=== PATIENT | female | born 2000 | race Caucasian/White ===

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

== ENCOUNTER 2020-02-09 02:13 | Emergency (ER) | payer OTHER ==
[2020-02-09 02:35] LABS: BILIRUBIN,URINE NEGATIVE (NEGATIVE); GLUCOSE, URINE (UA) NEGATIVE (NEGATIVE); KETONES,URINE (UA) NEGATIVE (NEGATIVE); LEUKOCYTE ESTERASE, URINE SMALL (NEGATIVE); NITRITE,URINE NEGATIVE (NEGATIVE); OCCULT BLOOD,URINE LARGE (NEGATIVE); PROTEIN,URINE 100 mg/dL (NEGATIVE); UROBILINOGEN,URINE 0.2 (NORMAL) E.U./dL (NORMAL)
[2020-02-09 02:36] LABS: HCG UR QUAL NEGATIVE
[2020-02-09 02:37] LABS: CLARITY,URINE SL. CLOUDY (CLEAR)
[2020-02-09 02:43] LABS: BACTERIA,URINE Moderate /HPF (None Seen); RBC,URINE TNTC /HPF (0-5); SQUAMOUS EPITHELIAL CELL,UR RARE Squamous (<= Few)
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
[2020-02-09 03:21] LABS: BASOPHILS # (AUTO) 0.1 10^3/uL (0.0-0.1); BASOPHILS % (AUTO) 0.6 %; EOSINOPHILS % (AUTO) 0.1 %; HGB - HEMOGLOBIN 13.9 g/dL (12.0-16.0); LYMPHOCYTES # (AUTO) 1.8 10^3/uL (1.5-3.5); LYMPHOCYTES % (AUTO) 16.5 %; MEAN CORPUSCULAR HEMOGLOBIN 31.7 pg (27.0-31.0); MEAN CORPUSCULAR HGB CONC 33.7 g/dL (32.0-36.0); MEAN CORPUSCULAR VOLUME 93.8 fL (81.0-99.0); MEAN PLATELET VOLUME 10.8 fL (7.9-10.8); MONOCYTES # (AUTO) 0.7 10^3/uL (0.0-1.0); MONOCYTES % (AUTO) 6.8 %; NEUTROPHILS # (AUTO) 8.2 10^3/uL (1.5-6.6); NEUTROPHILS % (AUTO) 75.5 %; PLT - PLATELET COUNT 248 10^3/uL (130-450); RED BLOOD COUNT 4.39 10^6/uL (4.20-5.40); RED CELL DISTRIBUTION WIDTH 12.6 % (12.0-15.0); WHITE BLOOD COUNT 10.9 x10^3/uL (4.8-10.8)
[2020-02-09 03:30] LABS: CALCIUM 9.1 mg/dL (8.5-10.3); CREATININE 0.8 mg/dL (0.4-1.0)
[2020-02-09] MEDS ORDERED: IOVERSOL 320 100 ML VIAL IVP ONE ×2 (03:35→04:02)
[2020-02-09] MEDS ORDERED: NITROFURANTOIN MACRO 100 MG CAPSULE PO STA (04:54)
[2020-02-09 05:09] VITALS: BP 114/76
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
== END 2020-02-09 05:10 | disposition home or self-care (01) ==
LOC: ED 02:13
DX: N28.89 Other specified disorders of kidney and ureter (principal)
CPT/HCPCS: 36415; 74177; 80048; 81001; 81025; 85025; 87086; 87181; 99284; A9270; Q9967; 81003

== ENCOUNTER 2022-04-06 17:08 | Emergency (ER) | payer OTHER ==
[2022-04-06 17:18] VITALS: BP 130/90
[2022-04-06] MEDS ORDERED: predniSONE 20 MG TABLET PO STA (17:36)
--- NOTE | 2022-04-06 17:38 | ED Physician Documentation ---
PD HPI SKIN - Stated complaint Stated Complaint: BODY RASH - Chief complaint Chief Complaint: Allergic Rx - History obtained from History obtained from: Patient (For over a month now she has had progressive rash that started on the trunk but now affects the arms and legs and to a lesser extent the face. Initially was asymptomatic, now it is mildly itchy. There are no associated fevers, chills, myalgias. She is never had this before.) Review of Systems Constitutional: denies: Fever, Chills, Myalgias, Fatigue Throat: denies: Sore throat PD PAST MEDICAL HISTORY - Past Surgical History Past Surgical History: Yes HEENT: Tonsil/Adenoidectomy - Present Medications Home Medications: Ambulatory Orders Medication Instructions Recorded Confirmed Nitrofurantoin Monohyd/M-Cryst 100 mg PO BID #14 capsule 02/09/20 [Macrobid 100 mg Capsule] predniSONE [Deltasone] 20 mg PO [id number] #21 tab 04/06/22 - Allergies Allergies/Adverse Reactions: Allergies Allergy/AdvReac Type Severity Reaction Status Date / Time polymyxin B [From Polytrim] Allergy Unknown Verified 04/06/22 17:11 trimethoprim [From Polytrim] Allergy Unknown Verified 04/06/22 17:11 - Social History Does the pt smoke?: No Smoking Status: Never smoker Does the pt drink ETOH?: No Does the pt have substance abuse?: Yes - Immunizations Immunizations are current?: Yes - POLST Patient has POLST: No PD ED PE NORMAL - Vitals Vital signs reviewed: Yes - General General: Alert and oriented X 3, No acute distress - Back Back: No CVA TTP, No spinal TTP - Derm Derm: Other (She has a diffuse rash that spares the palms and soles. Macular sl ightly raised plaques without central clearing.) - Neuro Neuro: Alert and oriented X 3, Normal speech Results - Vitals Vitals: Vital Signs - 24 hr 04/06/22 17:11 Temperature 36.5 C Heart Rate 90 Respiratory 16 Rate Blood Pressure 130/90 H O2 Saturation 98 Oxygen O2 Source Room air Departure - Departure Disposition: 01 Home, Self Care Clinical Impression: Rash and nonspecific skin eruption Condition: Good Record reviewed to determine appropriate education?: Yes Instructions: ED Pityriasis Rosea Prescriptions: predniSONE [Deltasone] 20 mg PO [id number] #21 tab Comments: My best guess would be something called pityriasis rosea, that said it is pretty severe even for that. Probably need to go see a parking inspector. The closest with the shortest waiting list is here in [place]: [facility] [address] [facility] [phone] . Call her tomorrow for an appointment. Return for new or worsening symptoms.
== END 2022-04-06 17:50 | disposition home or self-care (01) ==
LOC: ED 17:08
DX: R21 Rash and other nonspecific skin eruption (principal)
CPT/HCPCS: 99282; 99284; J7512